=== PATIENT | female | born 1995 | race Two or more races ===

== ENCOUNTER 2017-04-06 14:00 | Observation (INO) | payer MEDICAID ==
[~2017-04-06 14:00] MED LIST: PRENCAP61 PO
[2017-04-06 19:32] VITALS: BP 103/59
[2017-04-06 19:34] LABS: Basophils # (auto) 0 uL; Basophils % (auto) 0.1 % (0.0-2.0); DEFINITIVE VIEW TRANSMISSION; Eosinophils # (auto) 0.1 uL; Eosinophils % (auto) 1.3 % (0.0-7.0); Hematocrit 22.3 % (36.0-46.0); Hemoglobin 7.2 g/dL (12.2-16.2); Lymphocytes % (auto) 17.3 % (10.0-50.0); Mean Corpuscular Hemoglobin 22.6 pg (28.0-32.0); Mean Corpuscular Hgb Conc. 32.1 g/dL (32.0-36.0); Mean Corpuscular Volume 70.4 fL (80.0-100.0); Mean Platelet Volume 7.5 fL (7.4-10.4); Monocytes # (auto) 0.4 uL; Monocytes % (auto) 7.3 % (0.0-12.0); Neutrophils # (auto) 4.2 uL; Platelet Count (auto) 233 10^3/uL (140-450); Red Cell Distribution Width 17.9 % (11.6-16.0); White Blood Cell 5.6 10^3/uL (4.4-10.8)
[2017-04-06 21:28] VITALS: BP 101/66
[2017-04-07 00:48] LABS: Basophils # (auto) 0 uL; Basophils % (auto) 0.6 % (0.0-2.0); DEFINITIVE VIEW TRANSMISSION; Eosinophils # (auto) 0.1 uL; Eosinophils % (auto) 1.7 % (0.0-7.0); Hematocrit 28.1 % (36.0-46.0); Hemoglobin 8.8 g/dL (12.2-16.2); Lymphocytes # (auto) 1.1 uL; Lymphocytes % (auto) 19.2 % (10.0-50.0); Mean Corpuscular Hemoglobin 22.6 pg (28.0-32.0); Mean Corpuscular Hgb Conc. 31.1 g/dL (32.0-36.0); Mean Corpuscular Volume 72.7 fL (80.0-100.0); Mean Platelet Volume 7.4 fL (7.4-10.4); Monocytes # (auto) 0.6 uL; Neutrophils % (auto) 68.5 % (37.0-80.0); Platelet Count (auto) 221 10^3/uL (140-450); Red Cell Distribution Width 19.1 % (11.6-16.0); White Blood Cell 5.8 10^3/uL (4.4-10.8)
== END 2017-04-07 01:08 | disposition home or self-care (01) | DRG 566 ==
LOC: LDRP 14:00
PROVIDERS: ADMIT Specialist; ATTEND Specialist
DX: O99.013 Anemia complicating pregnancy, third trimester (principal); Z3A.39 39 weeks gestation of pregnancy
CPT/HCPCS: 36415; 36430; 59025; 81002; 85025; 86850; 86900; 86901; 86920; G0378; J7030; P9016; 96361; 96366

== ENCOUNTER 2017-04-14 15:50 | Observation (INO) | payer MEDICAID ==
[2017-04-14 17:47] LABS: Basophils # (auto) 0 uL; Basophils % (auto) 0.7 % (0.0-2.0); CONDITION AutoValidated; DEFINITIVE SEE PRINTOUT; Eosinophils # (auto) 0.1 uL; Eosinophils % (auto) 2.2 % (0.0-7.0); Hematocrit 29.1 % (36.0-46.0); Hemoglobin 9.4 g/dL (12.2-16.2); Lymphocytes # (auto) 0.9 uL; Lymphocytes % (auto) 13.8 % (10.0-50.0); Mean Corpuscular Hemoglobin 23.8 pg (28.0-32.0); Mean Corpuscular Hgb Conc. 32.3 g/dL (32.0-36.0); Mean Corpuscular Volume 73.5 fL (80.0-100.0); Mean Platelet Volume 7.8 fL (7.4-10.4); Monocytes # (auto) 0.4 uL; Monocytes % (auto) 7.1 % (0.0-12.0); Neutrophils # (auto) 4.8 uL; Neutrophils % (auto) 76.2 % (37.0-80.0); Platelet Count (auto) 215 10^3/uL (140-450); White Blood Cell 6.4 10^3/uL (4.4-10.8)
[2017-04-14 17:49] LABS: Red Cell Distribution Width 22.2 % (11.6-16.0)
[2017-04-14 18:10] LABS: Anisocytosis Moderate; Hypochromia Moderate; Macrocytosis Slight; Microcytosis Moderate; Platelet Estimate Adequate
== END 2017-04-14 17:44 | disposition home or self-care (01) | DRG 566 ==
LOC: LDRP 15:50
PROVIDERS: ADMIT Obstetrics & Gynecology; ATTEND Obstetrics & Gynecology
DX: O42.92 Full-term premature rupture of membranes, unspecified as to length of time between rupture and onset of labor (principal); O62.9 Abnormality of forces of labor, unspecified; Z3A.39 39 weeks gestation of pregnancy
CPT/HCPCS: 36415; 59025; 81002; 85025; G0378

== ENCOUNTER 2017-04-18 11:15 | Observation (INO) | payer MEDICAID ==
[~2017-04-18] VITALS: Ht 167.6 cm; Wt 59.9 kg
[2017-04-18] MEDS: LACTATED RINGER'S 1,000 ML IV SCH ×2 (11:37→19:37)
[2017-04-18] MEDS ORDERED: LACT. RINGERS/OXYTOCIN 20UNITS 1,000 ML IV SCH ×2 (11:37→12:50)
[2017-04-18] MEDS ORDERED: WITCH HAZEL-GLYCERIN PAD TOP PRN (11:45)
[2017-04-18] MEDS ORDERED: DERMOPLAST 60ML BOTTLE TOP PRN (11:45)
[2017-04-18] MEDS ORDERED: PHISODERM TOP SOLN 240ML BTL TOP PRN (11:45)
[2017-04-18] MEDS ORDERED: LIDOCAINE 2%HCL (LOCAL ANESTH.) INJ 20ML MDV IJ PRN (11:45)
[2017-04-18 12:15] LABS: Basophils # (auto) 0 uL; Basophils % (auto) 0.2 % (0.0-2.0); CONDITION Y; DEFINITIVE SEE PRINTOUT; Eosinophils # (auto) 0 uL; Eosinophils % (auto) 0.2 % (0.0-7.0); Hematocrit 29.3 % (36.0-46.0); Hemoglobin 9.6 g/dL (12.2-16.2); Lymphocytes # (auto) 0.8 uL; Lymphocytes % (auto) 10.9 % (10.0-50.0); Mean Corpuscular Hgb Conc. 32.7 g/dL (32.0-36.0); Mean Corpuscular Volume 73.3 fL (80.0-100.0); Mean Platelet Volume 7.4 fL (7.4-10.4); Monocytes # (auto) 0.4 uL; Monocytes % (auto) 5.1 % (0.0-12.0); Neutrophils # (auto) 6.5 uL; Neutrophils % (auto) 83.6 % (37.0-80.0); Platelet Count (auto) 232 10^3/uL (140-450); White Blood Cell 7.8 10^3/uL (4.4-10.8)
[2017-04-18 12:18] LABS: Red Cell Distribution Width 23.9 % (11.6-16.0)
[2017-04-18 12:38] LABS: INR 0.87 (0.9-1.15); Partial Thromboplastin Time 27.7 sec (22.64-33.71); Prothrombin Time 9.5 sec (9.37-12.3)
[2017-04-18 12:58] LABS: Albumin 2.5 g/dL (3.4-5.0); BUN/Creatinine Ratio 18.6; Bilirubin, Total 0.5 mg/dL (0.2-1.0); Calcium 8.4 mg/dL (8.5-10.1); Potassium 3.2 mmol/L (3.5-5.1); Total Protein 6.9 g/dL (6.4-8.2)
[2017-04-18 13:14] LABS: Urine Color Yellow (Yellow); Urine Glucose Normal (Normal); Urine Ketone Negative (Negative); Urine Mucus FEW (None Seen); Urine Nitrite Negative (Negative); Urine RBC 1 /hpf (0 - 4); Urine Squamous Epithelial Cell FEW /hpf (<5)
[2017-04-18] MEDS ORDERED: fentaNYL W ROPIVACAINE 0 ML EPI ONE (13:25)
[2017-04-18] MEDS ORDERED: fentaNYL CITRATE 100 MCG/2 ML VL ONE (13:26)
[2017-04-18 13:27] LABS: Urine Bilirubin Negative (Negative); Urine Blood 1+ /uL (Negative)
[2017-04-18] MEDS ORDERED: ePHEDrine SULFATE 50 MG/ML AMP ONE (13:27)
[2017-04-18] MEDS ORDERED: LIDOCAINE HCL 2 %PF INJ 10ML AMP IJ ONE (13:27)
[2017-04-18 13:43] LABS: Anisocytosis Slight; Microcytosis Moderate; Platelet Estimate Adequate
[2017-04-18 13:44] LABS: Hypochromia Moderate; Polychromasia Slight
[2017-04-18] MEDS ORDERED: METHYLERGONOVINE MALEATE 0.2 MG/ML AMP IM ONE (14:38)
[2017-04-18] MEDS ORDERED: CARBOPROST TROMETHAMINE 250 MCG/1ML VIAL IM PRN (14:45)
[2017-04-18] MEDS ORDERED: METHYLERGONOVINE MALEATE 0.2 MG/ML AMP IM PRN (14:45)
[2017-04-18] MEDS ORDERED: CARBOPROST TROMETHAMINE 250 MCG/1ML VIAL IM ONE (14:48)
[2017-04-18] MEDS ORDERED: LACT. RINGERS/OXYTOCIN 20UNITS 500 ML IV ONE (14:52)
[2017-04-18] MEDS ORDERED: ONDANSETRON HCL 4 MG/2 ML VIAL ONE (14:58)
[2017-04-18] MEDS ORDERED: IBUPROFEN 600 MG TAB PO PRN (15:00)
[2017-04-18] MEDS ORDERED: ACETAMINOPHEN 325 MG TAB PO PRN (15:00)
[2017-04-18] MEDS ORDERED: ONDANSETRON HCL 4 MG/2 ML VIAL IV PRN (15:00)
[2017-04-18] MEDS ORDERED: DIPHENOXYLATE W/ATROPINE 2.5 MG TAB PO PRN (15:00)
[2017-04-18 15:24] LABS: Basophils # (auto) 0 uL; Basophils % (auto) 0.2 % (0.0-2.0); CONDITION Y; DEFINITIVE SEE PRINTOUT; Eosinophils # (auto) 0 uL; Eosinophils % (auto) 0.1 % (0.0-7.0); Hematocrit 28.4 % (36.0-46.0); Hemoglobin 9.1 g/dL (12.2-16.2); Lymphocytes # (auto) 0.7 uL; Lymphocytes % (auto) 8.6 % (10.0-50.0); Mean Corpuscular Hemoglobin 23.5 pg (28.0-32.0); Mean Corpuscular Hgb Conc. 32.1 g/dL (32.0-36.0); Mean Corpuscular Volume 73.3 fL (80.0-100.0); Monocytes # (auto) 0.4 uL; Monocytes % (auto) 5.1 % (0.0-12.0); Neutrophils # (auto) 7.1 uL; Platelet Count (auto) 203 10^3/uL (140-450); White Blood Cell 8.3 10^3/uL (4.4-10.8)
[2017-04-18] MEDS ORDERED: CLINDAMYCIN 900MG IV 50 ML IV ONE (15:30)
[2017-04-18 15:31] LABS: Red Cell Distribution Width 23.8 % (11.6-16.0)
[2017-04-18] MEDS: LACT. RINGERS/OXYTOCIN 20UNITS 1,000 ML IV SCH ×2 (15:52→22:32)
[2017-04-18 18:38] VITALS: BP 101/56
[2017-04-18 19:34] VITALS: BP 105/64
[2017-04-18 20:32] LABS: Anisocytosis Moderate; Microcytosis Moderate; Platelet Estimate Adequate
[2017-04-18 20:33] LABS: Hypochromia Moderate; Ovalocytes FEW
[2017-04-18] MEDS: CLINDAMYCIN 900MG IV 50 ML IV SCH (22:00)
[2017-04-18 23:00] VITALS: BP 96/51
[2017-04-19] MEDS: CLINDAMYCIN 900MG IV 50 ML IV SCH (01:57)
[2017-04-19 03:14] VITALS: BP 86/51
[2017-04-19 07:35] VITALS: BP 100/51
[2017-04-19] MEDS ORDERED: POTASSIUM CHL 20 Meq TABLET PO ONE (08:30)
[2017-04-19] MEDS ORDERED: CLINDAMYCIN 900MG IV 50 ML IV SCH ×2 (10:00→18:00)
[2017-04-19] MEDS ORDERED: DOCUSATE CALCIUM 240 MG CAP PO SCH (10:00)
[2017-04-19] MEDS ORDERED: TETANUS-DIPTH-ACEL PERTUSSIS 0.5ML SYRG IM ONE (11:30)
[2017-04-19] MEDS ORDERED: MEASLES, MUMPS & RUBELLA VAC(MMRII) 0.5ML SC ONE (11:30)
[2017-04-19] MEDS ORDERED: LACT. RINGERS/OXYTOCIN 20UNITS 1,000 ML IV SCH (11:37)
[2017-04-19 12:00] VITALS: BP 92/50
[2017-04-19 15:46] VITALS: BP 87/54
[2017-04-19 19:26] VITALS: BP 88/54
[2017-04-19 23:00] VITALS: BP 89/52
[2017-04-20 03:05] VITALS: BP 88/56
[2017-04-20 07:32] VITALS: BP 101/68
== END 2017-04-20 11:10 | disposition home or self-care (01) | DRG 560 ==
LOC: LDRP 11:15
PROVIDERS: ADMIT Obstetrics & Gynecology; ATTEND Obstetrics & Gynecology
DX: O72.1 Other immediate postpartum hemorrhage (principal); Z37.0 Single live birth
CPT/HCPCS: 36415; 51702; 59025; 80053; 81001; 81002; 85025; 85610; 85730; 86850; 86900; 86901; 86920; 88307; 90471; 90472; 90707; 90715; 96365; 96366; 96372; G0378; J2210; J2405; J2590; J3490; 59409; J3010

== ENCOUNTER 2021-04-04 10:50 | Observation (INO) | payer BC, MEDICAID ==
[2021-04-04 11:56] LABS: Basophils # (auto) 0 10 ^3/uL (0-0.2); Basophils % (auto) 0.4 % (0.0-2.0); Eosinophils # (auto) 0.1 10 ^3/uL (0-0.8); Eosinophils % (auto) 2.5 % (0.0-7.0); Hematocrit 27.9 % (36.0-46.0); Hemoglobin 9.5 g/dL (12.2-16.2); Lymphocytes # (auto) 0.8 10 ^3/uL (0.4-5.4); Lymphocytes % (auto) 16.7 % (10.0-50.0); Mean Corpuscular Hemoglobin 28.9 pg (28.0-32.0); Mean Corpuscular Volume 85.1 fL (80.0-100.0); Monocytes # (auto) 0.4 10 ^3/uL (0-1.3); Monocytes % (auto) 8.3 % (0.0-12.0); Neutrophils # (auto) 3.4 10 ^3/uL (1.6-8.6); Neutrophils % (auto) 72.1 % (37.0-80.0); Nucleated Red Blood Cells % 0.2 %; Platelet Count (auto) 185 10^3/uL (140-450); Red Blood Cells 3.27 10^6/uL (4.0-5.20); Red Cell Distribution Width 13.5 % (11.8-14.3); White Blood Cell 4.8 10^3/uL (4.4-10.8)
[2021-04-04 12:09] LABS: Urine Bacteria NONE SEEN /hpf (None Seen); Urine Blood 1+ /uL (Negative); Urine Budding Yeast FEW /hpf (None Seen); Urine Specific Gravity 1.011 (1.001-1.035); Urine WBC 159 /hpf (0 - 5)
[2021-04-04 12:14] LABS: INR 0.92 (0.9-1.15); Partial Thromboplastin Time 28.4 sec (23.0-31.2)
[2021-04-04] MEDS ORDERED: ASPI-231 PO (12:14)
[2021-04-04 12:20] LABS: Albumin 2.3 g/dL (3.4-5.0); Potassium 3.5 mmol/L (3.5-5.1)
[2021-04-04 12:23] LABS: Protein, Urine 23.5 mg/dL (0.0-11.9)
[2021-04-04 12:26] LABS: BUN/Creatinine Ratio 27.3; Bilirubin, Total 0.4 mg/dL (0.2-1.0); Total Protein 6.8 g/dL (6.4-8.2); Uric Acid 3.2 mg/dL (2.6-6.0)
== END 2021-04-04 13:15 | disposition home or self-care (01) ==
LOC: LDRP 10:50
PROVIDERS: ADMIT Obstetrics & Gynecology; ATTEND Obstetrics & Gynecology
DX: O13.3 Gestational [pregnancy-induced] hypertension without significant proteinuria, third trimester (principal); O99.013 Anemia complicating pregnancy, third trimester; Z3A.29 29 weeks gestation of pregnancy
CPT/HCPCS: 36415; 59025; 80053; 81001; 81002; 82570; 84156; 84550; 85025; 85362; 85379; 85610; 85730; G0378

== ENCOUNTER 2021-04-06 08:20 | Observation (INO) | payer BC ==
[~2021-04-06] VITALS: Ht 170.2 cm; Wt 59.4 kg
[~2021-04-06 08:20] MED LIST changes: +ASPI-231 PO
[2021-04-06 09:20] LABS: Protein, Urine 41.5 mg/dL (0.0-11.9)
[2021-04-06 09:32] LABS: 24 Hr. Total Protein, Urine 352.7 mg/24 Hr (<149.1)
[2021-04-06 09:50] LABS: Urine Bacteria NONE SEEN /hpf (None Seen); Urine Blood TRACE /uL (Negative); Urine Specific Gravity 1.014 (1.001-1.035); Urine WBC 97 /hpf (0 - 5)
[2021-04-06 09:54] LABS: Creatinine Clearance, Urine 121.56 mL/min (75-115)
[2021-04-06 10:03] LABS: Protein, Urine 29.8 mg/dL (0.0-11.9)
== END 2021-04-06 10:25 | disposition home or self-care (01) ==
LOC: LDRP 08:20
PROVIDERS: ADMIT Obstetrics & Gynecology; ATTEND Obstetrics & Gynecology
DX: O12.13 Gestational proteinuria, third trimester (principal); Z3A.29 29 weeks gestation of pregnancy
CPT/HCPCS: 36415; 59025; 81001; 81002; 82565; 82570; 82575; 84156; G0378

== ENCOUNTER 2021-04-12 09:21 | Observation (INO) | payer BC ==
[~2021-04-12] VITALS: Ht 170.2 cm; Wt 58.5 kg
[2021-04-12] MEDS ORDERED: NIFEdipine 10 MG CAP PO ONE (14:00)
[2021-04-12] MEDS ORDERED: TERBUTALINE SULFATE 1 MG/ML 1ML VIAL SC SCH (14:45)
[2021-04-12] MEDS ORDERED: NIF10C PO (15:35)
== END 2021-04-12 15:45 | disposition home or self-care (01) ==
LOC: XYW 09:21 → LDRP 12:41
PROVIDERS: ADMIT Obstetrics & Gynecology; ATTEND Obstetrics & Gynecology
DX: O12.13 Gestational proteinuria, third trimester (principal); Z3A.30 30 weeks gestation of pregnancy
CPT/HCPCS: 59025; 76818; 81002; 96372; G0378; J3105

== ENCOUNTER 2021-04-19 11:00 | Observation (INO) | payer BC ==
[~2021-04-19] VITALS: Ht 170.2 cm; Wt 59.0 kg
[~2021-04-19 11:00] MED LIST changes: -ASPI-231 PO; +ASPI1TAB20 PO; +NIF10C PO
[2021-04-19] MEDS ORDERED: SODIUM CHLORIDE 0.9% 1,000 ML IV ONE (13:00)
[2021-04-19] MEDS ORDERED: cefTRIAXone 1GM/50ML D5W 50 ML IV ONE (13:00)
[2021-04-19] MEDS: TERBUTALINE SULFATE 1 MG/ML 1ML VIAL SC SCH ×3 (13:20→15:18)
[2021-04-19] MEDS ORDERED: CEPH-322 PO (16:07)
== END 2021-04-19 16:20 | disposition home or self-care (01) ==
LOC: LDRP 11:00
PROVIDERS: ADMIT Specialist; ATTEND Specialist
DX: O23.43 Unspecified infection of urinary tract in pregnancy, third trimester (principal); O60.03 Preterm labor without delivery, third trimester; Z3A.31 31 weeks gestation of pregnancy; Z88.0 Allergy status to penicillin
CPT/HCPCS: 59025; 76818; 81002; 87086; 94760; 96361; 96365; 96366; 96372; G0378; J0696; J3105; J7030; 96360

== ENCOUNTER 2021-04-26 08:32 | Observation (INO) | payer BC ==
[~2021-04-26 08:32] MED LIST changes: +ASPI-231 PO; -ASPI1TAB20 PO; +CEPH-322 PO
[2021-05-12] MEDS ORDERED: NITR-87 PO (19:56)
[2021-05-12 20:37] LABS: Protein, Urine 45.7 mg/dL (0.0-11.9)
[2021-05-12 20:42] LABS: 24 Hr. Total Protein, Urine 388.4 mg/24 Hr (<149.1)
== END 2021-05-12 20:06 | disposition home or self-care (01) ==
LOC: LDRP 05-12 19:05
PROVIDERS: ADMIT Obstetrics & Gynecology; ATTEND Obstetrics & Gynecology
DX: O12.13 Gestational proteinuria, third trimester (principal); O60.03 Preterm labor without delivery, third trimester; Z3A.34 34 weeks gestation of pregnancy
CPT/HCPCS: 59025; 81002; 84156; G0378

== ENCOUNTER 2021-05-10 19:54 | Observation (INO) | payer BC ==
[~2021-05-10] VITALS: Ht 170.2 cm; Wt 60.3 kg
== END 2021-05-10 21:48 | disposition home or self-care (01) ==
LOC: LDRP 19:54
PROVIDERS: ADMIT Specialist; ATTEND Specialist
DX: O12.13 Gestational proteinuria, third trimester (principal); O60.03 Preterm labor without delivery, third trimester; Z3A.34 34 weeks gestation of pregnancy
CPT/HCPCS: 59025; 76818; 81002; G0378

== ENCOUNTER 2021-06-13 00:45 | Inpatient (IN) | payer BC ==
[~2021-06-13] VITALS: Ht 170.2 cm; Wt 61.2 kg
[~2021-06-13 00:45] MED LIST changes: -CEPH-322 PO; +NITR-87 PO
[2021-06-13] MEDS ORDERED: LACT. RINGERS/OXYTOCIN 20UNITS 1,000 ML IV SCH (03:15)
[2021-06-13] MEDS ORDERED: WITCH HAZEL-GLYCERIN PAD TOP PRN (03:15)
[2021-06-13] MEDS ORDERED: PHISODERM TOP SOLN 240ML BTL TOP PRN (03:15)
[2021-06-13] MEDS ORDERED: LIDOCAINE 2%HCL (LOCAL ANESTH.) INJ 20ML MDV IJ PRN (03:15)
[2021-06-13] MEDS ORDERED: METHYLERGONOVINE MALEATE 0.2 MG/ML AMP IM PRN (03:15)
[2021-06-13] MEDS ORDERED: OXYTOCIN 10UNIT/ML 1ML VIAL IM ONE (03:15)
[2021-06-13] MEDS ORDERED: LACT. RINGERS/OXYTOCIN 20UNITS 500 ML IV ONE ×2 (03:15→03:45)
[2021-06-13] MEDS ORDERED: DERMOPLAST 60ML BOTTLE TOP PRN (03:15)
[2021-06-13] MEDS ORDERED: PROMETHAZINE HCL 25 MG/ML 1ML IM PRN (03:15)
[2021-06-13] MEDS ORDERED: TERBUTALINE SULFATE 1 MG/ML 1ML VIAL SC ONE (03:15)
[2021-06-13 03:34] LABS: Basophils # (auto) 0 10 ^3/uL (0-0.2); Eosinophils # (auto) 0 10 ^3/uL (0-0.8); Hemoglobin 8.7 g/dL (12.2-16.2); Mean Corpuscular Volume 76.4 fL (80.0-100.0); Monocytes # (auto) 0.5 10 ^3/uL (0-1.3); Neutrophils # (auto) 4.3 10 ^3/uL (1.6-8.6); Red Cell Distribution Width 15.5 % (11.8-14.3)
[2021-06-13 03:36] LABS: Basophils % (auto) 0.5 % (0.0-2.0); Eosinophils % (auto) 0.6 % (0.0-7.0); Hematocrit 26.4 % (36.0-46.0); Lymphocytes % (auto) 17.7 % (10.0-50.0); Mean Corpuscular Hemoglobin 25.1 pg (28.0-32.0); Mean Corpuscular Hgb Conc. 32.9 g/dL (32.0-36.0); Neutrophils % (auto) 73.2 % (37.0-80.0); Red Blood Cells 3.46 10^6/uL (4.0-5.20); White Blood Cell 5.8 10^3/uL (4.4-10.8)
[2021-06-13 03:53] LABS: INR 0.91 (0.9-1.15); Partial Thromboplastin Time 27.2 sec (23.6-33.0)
[2021-06-13 03:55] LABS: Urine Bacteria FEW /hpf (None Seen); Urine Blood 2+ /uL (Negative); Urine Mucus FEW (None Seen); Urine Specific Gravity 1.011 (1.001-1.035); Urine WBC 33 /hpf (0 - 5)
[2021-06-13 03:56] LABS: Albumin 2.3 g/dL (3.4-5.0); Calcium 8.5 mg/dL (8.5-10.1); Potassium 3.6 mmol/L (3.5-5.1)
[2021-06-13 03:59] LABS: Alcohol, Urine < 3.0 mg/dL (0-10); Amphetamine Screen, Urine NEGATIVE (NEGATIVE); Barbiturate Scree,Urine NEGATIVE (NEGATIVE); Benzodiazephine Screen, Urine NEGATIVE (NEGATIVE); Cannabinoid Screen, Urine NEGATIVE (NEGATIVE); Cocaine Screen, Urine NEGATIVE (NEGATIVE); Opiate Scree,Urine NEGATIVE (NEGATIVE); Phencyclidine Screen, Urine NEGATIVE (NEGATIVE)
[2021-06-13 04:02] LABS: Bilirubin, Total 0.4 mg/dL (0.2-1.0); Total Protein 7.2 g/dL (6.4-8.2)
[2021-06-13] MEDS ORDERED: fentaNYL CITRATE 100 MCG/2 ML VL IV ONE ×2 (04:30→05:45)
[2021-06-13] MEDS ORDERED: NALOXONE HCL 0.4 MG/ML VIAL IV ONE ×2 (04:30→05:45)
[2021-06-13] MEDS ORDERED: LACTATED RINGER'S 1,000 ML IV ONE ×2 (04:30→05:45)
[2021-06-13] MEDS ORDERED: ePHEDrine SULFATE 50 MG/ML AMP IV ONE ×2 (04:30→05:45)
[2021-06-13] MEDS ORDERED: LIDOCAINE HCL 2 %PF INJ 10ML AMP IJ ONE ×3 (04:30→05:56)
[2021-06-13] MEDS ORDERED: ROPIVACAINE HCL 200 ML EPI SCH ×3 (04:30→06:30)
[2021-06-13] MEDS: LACTATED RINGER'S 1,000 ML IV SCH ×2 (04:58→06:23)
[2021-06-13] MEDS ORDERED: ONDANSETRON HCL 4 MG/2 ML VIAL IV PRN (08:15)
[2021-06-13] MEDS ORDERED: miSOPROStol 100 mcg TAB PR ONE (08:15)
[2021-06-13] MEDS ORDERED: CARBOPROST TROMETHAMINE 250 MCG/1ML VIAL IM PRN (08:15)
[2021-06-13] MEDS ORDERED: TRANEXAMIC ACID 1,000 MG in SODIUM CHL 0.9% 100 ML IV ONE (08:15)
[2021-06-13] MEDS ORDERED: miSOPROStol 100 mcg TAB SL ONE (08:15)
[2021-06-13] MEDS ORDERED: DIPHENOXYLATE W/ATROPINE 2.5 MG TAB PO SCH (10:00)
[2021-06-13] MEDS ORDERED: ACETAMINOPHEN 325 MG TAB PO PRN (10:30)
[2021-06-13] MEDS ORDERED: ceFAZolin 1GM/50ML 50 ML IV SCH ×2 (10:45→11:00)
[2021-06-13] MEDS: CLINDAMYCIN 900MG IV 50 ML IV SCH ×2 (11:27→19:24)
[2021-06-13] MEDS ORDERED: ALUM & MAG HYDROX-SIMETH LIQ(MAALOX) 30 ML PO PRN (12:00)
[2021-06-13] MEDS: IBUPROFEN 600 MG TAB PO PRN (12:57)
[2021-06-13] MEDS ORDERED: IOHEXOL 350 MG/ML 100ML IJ ONE (14:11)
[2021-06-13 15:00] VITALS: BP 136/92
[2021-06-13 20:10] LABS: Eosinophils # (auto) 0 10 ^3/uL (0-0.8); Hemoglobin 9.8 g/dL (12.2-16.2)
[2021-06-13 20:12] LABS: Basophils # (auto) 0 10 ^3/uL (0-0.2); Basophils % (auto) 0.2 % (0.0-2.0); Hematocrit 30.4 % (36.0-46.0); Lymphocytes # (auto) 0.8 10 ^3/uL (0.4-5.4); Lymphocytes % (auto) 4.2 % (10.0-50.0); Mean Corpuscular Hemoglobin 24.5 pg (28.0-32.0); Mean Corpuscular Hgb Conc. 32.4 g/dL (32.0-36.0); Mean Corpuscular Volume 75.6 fL (80.0-100.0); Monocytes % (auto) 4.9 % (0.0-12.0); Neutrophils # (auto) 17.7 10 ^3/uL (1.6-8.6); Neutrophils % (auto) 90.7 % (37.0-80.0); Red Blood Cells 4.01 10^6/uL (4.0-5.20); Red Cell Distribution Width 15.6 % (11.8-14.3); White Blood Cell 19.5 10^3/uL (4.4-10.8)
[2021-06-13 23:06] VITALS: BP 88/50
[2021-06-14 03:25] VITALS: BP 94/57
[2021-06-14] MEDS: CLINDAMYCIN 900MG IV 50 ML IV SCH (03:41)
[2021-06-14] MEDS: IBUPROFEN 600 MG TAB PO PRN ×2 (05:38→14:16)
[2021-06-14 06:06] LABS: Rubella Antibodies, IgG <0.90 index (Immune >0.99)
[2021-06-14 07:06] LABS: RPR Non Reactive (Non Reactive)
[2021-06-14 10:11] LABS: BUN/Creatinine Ratio 14.9; Potassium 3.9 mmol/L (3.5-5.1)
[2021-06-14 10:12] LABS: Calcium 8.3 mg/dL (8.5-10.1)
[2021-06-14 10:18] LABS: Basophils # (auto) 0 10 ^3/uL (0-0.2); Eosinophils # (auto) 0.1 10 ^3/uL (0-0.8); Hemoglobin 8.4 g/dL (12.2-16.2); Monocytes # (auto) 0.6 10 ^3/uL (0-1.3); White Blood Cell 12.2 10^3/uL (4.4-10.8)
[2021-06-14 10:20] LABS: Basophils % (auto) 0.4 % (0.0-2.0); Eosinophils % (auto) 0.6 % (0.0-7.0); Hematocrit 25.5 % (36.0-46.0); Lymphocytes # (auto) 1.5 10 ^3/uL (0.4-5.4); Lymphocytes % (auto) 12.5 % (10.0-50.0); Mean Corpuscular Hemoglobin 24.8 pg (28.0-32.0); Mean Corpuscular Hgb Conc. 32.9 g/dL (32.0-36.0); Mean Corpuscular Volume 75.4 fL (80.0-100.0); Monocytes % (auto) 5.2 % (0.0-12.0); Neutrophils # (auto) 9.9 10 ^3/uL (1.6-8.6); Neutrophils % (auto) 81.3 % (37.0-80.0); Red Blood Cells 3.38 10^6/uL (4.0-5.20); Red Cell Distribution Width 15.2 % (11.8-14.3)
[2021-06-14 15:00] VITALS: BP 100/59
[2021-06-14 15:17] VITALS: BP 100/59
== END 2021-06-14 15:17 | disposition home or self-care (01) | DRG 806 ==
LOC: LDRP 00:45 → OBSVTOIN 02:58 → LDRP 03:56
PROVIDERS: ADMIT Obstetrics & Gynecology; ATTEND Obstetrics & Gynecology
PROC: 10E0XZZ Delivery of Products of Conception, External Approach (ICD-10-PCS; principal; 2021-06-13)
PROC: 3E0R3BZ Introduction of Anesthetic Agent into Spinal Canal, Percutaneous Approach (ICD-10-PCS; 2021-06-13)
PROC: 00HU33Z Insertion of Infusion Device into Spinal Canal, Percutaneous Approach (ICD-10-PCS; 2021-06-13)
DX: O69.81X0 Labor and delivery complicated by cord around neck, without compression, not applicable or unspecified (principal); N13.30 Unspecified hydronephrosis; Z37.0 Single live birth; Z20.822 Contact with and (suspected) exposure to COVID-19; O99.892 Other specified diseases and conditions complicating childbirth; Z88.5 Allergy status to narcotic agent; Z88.0 Allergy status to penicillin; Z3A.39 39 weeks gestation of pregnancy
CPT/HCPCS: 36415; 59025; 59409; 62282; 71045; 71275; 74176; 80048; 80053; 80307; 81001; 81002; 85025; 85610; 85730; 86592; 86762; 86850; 86900; 86901; 86920; 87426; 94760; 96360; 96361; 96365; 96366; 96372; G0378; J0690; J2405; J2590; J3490